=== PATIENT | female | born 1995 | race American Indian/Alaskan Native ===

== ENCOUNTER 2018-01-03 11:42 | Outpatient (CLI) | payer OTHER | END 2018-01-03 18:23 | disposition home or self-care (01) | LOC: OBS/DEL 11:42 | DX: O47.1 False labor at or after 37 completed weeks of gestation (principal); Z34.03 Encounter for supervision of normal first pregnancy, third trimester ==

== ENCOUNTER 2018-01-03 22:38 | Inpatient (IN) | payer OTHER ==
[~2018-01-03] VITALS: Ht 154.9 cm; Wt 65.3 kg
== END 2018-01-06 17:25 | disposition home or self-care (01) | DRG 774 ==
LOC: OBS/DEL 22:38 → LDR 01-04 00:12 → OBS/DEL 01-04 00:12 → OB/GYN 01-04 00:12 → LDR 01-04 07:05 → OB/GYN 01-04 15:49
PROC: 10E0XZZ Delivery of Products of Conception, External Approach (ICD-10-PCS; principal; 2018-01-04)
PROC: 10907ZC Drainage of Amniotic Fluid, Therapeutic from Products of Conception, Via Natural or Artificial Opening (ICD-10-PCS; 2018-01-04)
PROC: 3E033VJ Introduction of Other Hormone into Peripheral Vein, Percutaneous Approach (ICD-10-PCS; 2018-01-04)
PROC: 4A1HXCZ Monitoring of Products of Conception, Cardiac Rate, External Approach (ICD-10-PCS; 2018-01-04)
DX: O69.81X0 Labor and delivery complicated by cord around neck, without compression, not applicable or unspecified (principal); O75.3 Other infection during labor; O99.824 Streptococcus B carrier state complicating childbirth; O99.02 Anemia complicating childbirth; Z3A.39 39 weeks gestation of pregnancy; Z37.0 Single live birth

== ENCOUNTER 2020-12-20 12:15 | Emergency (ER) | payer OTHER ==
[~2020-12-20] VITALS: Ht 154.9 cm; Wt 57.2 kg
[2020-12-20] MEDS ORDERED: PRENATABS RX T1 EACH PO (12:50)
== END 2020-12-20 18:38 | disposition home or self-care (01) ==
LOC: ER 12:15
DX: O20.0 Threatened abortion (principal)

== ENCOUNTER 2020-12-23 06:12 | Day surgery (SDC) | payer OTHER ==
[~2020-12-23] VITALS: Ht 154.9 cm; Wt 57.2 kg
[~2020-12-23 06:12] MED LIST: PRENATABS RX T1 EACH PO
== END 2020-12-23 20:15 | disposition home or self-care (01) ==
LOC: ER 06:12 → CIR.AMB 13:31
PROVIDERS: ATTEND Obstetrics & Gynecology
DX: O03.4 Incomplete spontaneous abortion without complication (principal); Z20.822 Contact with and (suspected) exposure to COVID-19

== ENCOUNTER 2022-04-01 10:18 | Outpatient (CLI) | payer OTHER ==
[2022-04-01] MEDS ORDERED: PRENATAL TABLE1 EAC3 PO (10:59)
== END 2022-04-01 17:52 | disposition home or self-care (01) ==
LOC: OBS/DEL 10:18
PROVIDERS: ATTEND Obstetrics & Gynecology
DX: O26.893 Other specified pregnancy related conditions, third trimester (principal); Z3A.34 34 weeks gestation of pregnancy; K59.00 Constipation, unspecified

== ENCOUNTER 2022-04-19 13:26 | Outpatient (CLI) | payer OTHER ==
[~2022-04-19 13:26] MED LIST changes: +PRENATAL TABLE1 EAC3 PO
[2022-04-19] MEDS ORDERED: PRENATAL TABLE1 EAC1 PO (15:37)
== END 2022-04-20 09:50 | disposition home or self-care (01) ==
LOC: OBS/DEL 13:26
PROVIDERS: ATTEND Obstetrics & Gynecology
DX: O47.1 False labor at or after 37 completed weeks of gestation (principal); Z3A.37 37 weeks gestation of pregnancy

== ENCOUNTER 2022-05-02 04:30 | Inpatient (IN) | payer OTHER ==
[~2022-05-02] VITALS: Ht 154.9 cm; Wt 72.6 kg
[~2022-05-02 04:30] MED LIST changes: +PRENATAL TABLE1 EAC1 PO
[2022-05-02] MEDS ORDERED: PRENATAL TABLE1 EAC3 PO (08:11)
== END 2022-05-04 13:47 | disposition home or self-care (01) | DRG 807 ==
LOC: LDR 04:30 → OB/GYN 04:30
PROVIDERS: ADMIT Obstetrics & Gynecology; ATTEND Obstetrics & Gynecology
PROC: 10E0XZZ Delivery of Products of Conception, External Approach (ICD-10-PCS; principal; 2022-05-02)
PROC: 4A1HXCZ Monitoring of Products of Conception, Cardiac Rate, External Approach (ICD-10-PCS; 2022-05-02)
DX: O80 Encounter for full-term uncomplicated delivery (principal); Z37.0 Single live birth; Z3A.39 39 weeks gestation of pregnancy; Z20.822 Contact with and (suspected) exposure to COVID-19